=== PATIENT | male | born 1975 | race Hispanic/Latino ===

== ENCOUNTER 2019-12-28 09:41 | Inpatient (IN) | payer OTHER, SELFPAY ==
[2019-12-28] VITALS (11 sets, daily range): BP systolic 103–137; BP diastolic 67–90; PULSE 93–106; RESP 18–23; TEMP 36.9–37.5; O2SAT 90–95; BMI 33.3
--- NOTE | ~2019-12-28 | XR_ITS ---
EXAMINATION: XR chest 1V portable INDICATION: Shortness of breath and cough, COVID 19 positive TECHNIQUE: Portable AP chest at 1011 hours COMPARISON: None available FINDINGS: Diffuse, patchy bilateral airspace opacities are present. There is no pleural effusion or p neumothorax. The cardiomediastinal silhouette is normal. The visualized osseous structures are unrema rkable. IMPRESSION: 1. Diffuse lung disease, consistent with COVID 19 pneumonia. Reviewed, dictated and finalized at location A.
--- NOTE | 2019-12-28 09:55 | ECG_ITS ---
Measurements Intervals [place] Rate: 106 P: 27 [place]: 137 QRS: 0 QRSD: 93 T: 47 QT: 325 QTc: 433 Interpretive Statements SINUS TACHYCARDIA DELAYED PRECORDIAL R/S TRANSITION BASELINE ARTIFACT- III, AVF ABNORMAL ECG Electronically Signed On 12-28-2019 10:39:02 CDT by Arnold Degroot D.O.
[2019-12-28 10:31] LABS: Anion Gap 8 mmol/L (8-16); Blood Urea Nitrogen 12 mg/dL (9-20); Calcium 8.6 mg/dL (8.4-10.2); Carbon Dioxide 29 mmol/L (22-30); Chloride 97 mmol/L (98-107); Estimated CRCL calculation 136 ml/min; Estimated Glomerular Filt Rate > 60; Glucose 246 mg/dL (75-110); Potassium 4.1 mmol/L (3.4-5.0); Sodium 134 mmol/L (137-145)
[2019-12-28 10:32] LABS: Lactic Acid Reflex 1.6 mmol/L (0.7-2.1)
[2019-12-28 10:37] LABS: Basophils Percent Auto 0.3 % (0.2-1.2); Eosinophils Absolute Auto 0.1 K/mm3 (0-0.3); Eosinophils Percent Auto 1.2 % (0-4.4); Hematocrit 41.2 % (42.0-52.0); Hemoglobin 14.3 g/dL (14.0-18.0); Immature Granulocyte Absolute 0.05 K/mm3 (0.00-0.031); Immature Granulocyte Percent A 0.8 % (0-0.5); Lymphocytes Absolute Auto 1.28 K/mm3 (0.9-3.2); Lymphocytes Percent Auto 19.7 % (18.3-44.2); Mean Corpuscular HGB Conc 34.7 g/dl (32-36); Mean Corpuscular Hemoglobin 28.4 pg (26-34); Mean Corpuscular Volume 81.7 fl (80-100); Mean Platelet Volume 11.4 fl (7.4-10.4); Monocytes Absolute Auto 0.5 K/mm3 (0.1-0.6); Monocytes Percent Auto 7.1 % (2.6-8.5); Neutrophils Absolute Auto 4.6 K/mm3 (1.3-6.7); Neutrophils Percent Auto 70.9 % (45.5-73.1); Platelet Count Result 248 k/mm3 (150-375); Red Blood Count 5.04 M/mm3 (4.6-6.20); Red Cell Distribution Width 12.6 % (11.5-14.5); White Blood Count 6.5 K/mm3 (4.5-10.0)
[2019-12-28 10:41] LABS: Glucose Point of Care 209 (65-105)
--- NOTE | 2019-12-28 10:47 | ED.GENADULT ---
HPI - General Adult General Chief complaint: Shortness of Breath/Dyspnea <Sylvester Limon PA-C - Last Filed: 12/28/19 11:22> Stated complaint: SOB <Sylvester Limon PA-C - Last Filed: 12/28/19 11:22> Time Seen by Provider: 12/28/19 10:07 <Sylvester Limon PA-C - Last Filed: 12/28/19 11:22> Source: patient <Sylvester Limon PA-C - Last Filed: 12/28/19 11:22> Mode of arrival: ambulatory <Sylvester Limon PA-C - Last Filed: 12/28/19 11:22> Limitations: no limitations <Sylvester Limon PA-C - Last Filed: 12/28/19 11:22> History of Present Illness HPI narrative: Patient is a 44-year-old male who presents to emergency department for evaluation of upper respiratory symptoms 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 Patient on arrival denies vomiting diarrhea. Patient presents on oxygen due to hypoxemia <Sylvester Limon PA-C - Last Filed: 12/28/19 11:22> Related Data Allergies/adverse reactions: Allergies Allergy/AdvReac Type Severity Reaction Status Date / Time No Known Allergies Allergy Verified 12/28/19 10:00 <Sylvester Limon PA-C - Last Filed: 12/28/19 11:22> Review of Systems Review of Systems: All systems reviewed & are unremarkable except as noted in HPI and below <Sylvester Limon PA-C - Last Filed: 12/28/19 11:22> [facility] Past Medical History Medical History: Medical History (Updated 12/28/19 @ 11:22 by Sylvester Limon PA-C) Diabetes mellitus <Sylvester Limon PA-C - Last Filed: 12/28/19 11:22> Family History Family History: Family History Other Diabetes mellitus Family history of obesity Hypertension <LIZZY Valencia Last Filed: 12/28/19 11:22> Social History Social History: Social History Smoking status: Never smoker Alcohol intake: never <Sylvester Limon PA-C - Last Filed: 12/28/19 11:22> Exam Narrative: Exam Narrative: GENERAL: Ill-appearing, well-nourished, and in no acute distress. HEAD: Normocephalic, atraumatic. EYES: PERRLA and EOMI. ENT: Nares clear, no rhinorrhea or epistaxis. Mucous membranes moist. Oropharynx without tonsillar hypertrophy exudate or other lesions. NECK: Supple. No adenopathy or masses. CHEST: Diminished on auscultation. No respiratory distress. No wheezes. Crackles in the lung segura HEART: Regular rate and rhythm. No murmur heard. Normal peripheral pulses. EXTREMITIES: Normal range of motion. No edema. SKIN: Warm, dry, no rash. NEURO: No focal deficits. Alert and oriented x3. Cranial nerves II through XII grossly intact PSYCH: Normal mood and affect. <Sylvester Limon PA-C - Last Filed: 12/28/19 11:22> Course Course Emergency Course: Patient in the room at this time resting comfortably will be placed in hospital aware of case findings treatment plan and diagnosis seen by myself and my attending. <Sylvester Limon PA-C - Last Filed: 12/28/19 11:22> BURIAL AGENT/PA Physician Supervision Patient presented for evaluation of shortness of breath in the setting of recent diagnosed COVID infection. Patient is on day 8 of symptoms. At the time of assessment, patient is borderline hypoxemic, oxygen saturations are anywhere from 88 to 91% on room air. Patient is to neck. No severe respiratory distress. Patient was placed on nasal cannula oxygenation with improvement in his work of breathing. Laboratory results are consistent with viral infection. Chest x-ray is consistent with COVID-19 infection. Patient will be admitted to the hospitalist for hypoxemia in the setting of cold with infection. For this patient encounter
[2019-12-28 10:49] LABS: Phosphorus 3.3 mg/dL (2.5-4.5)
[2019-12-28 10:51] LABS: Alveolar/Arterial O2 Gradient 73.1 mmHg; Base Excess ABG 0.2 mEq/l (+/-2.0); Carboxyhemoglobin 0.6 % THb (0-2.0); Fractional Inspired Oxygen 24 %; HCO3 ABG 23.9 mEq/l (22.0-26.0); Methemoglobin ABG 0.1 %THb (0-1.5); Oxygen Content ABG 16.2 %vol (16.0-22.0); Oxygen Saturation ABG 90.1 % (95.0-100.0); Oxyhemoglobin 88.2 % THb (90.0-100.0); PCO2 ABG 35.9 mmHg (35.0-45.0); PO2 ABG 55.3 mmHg (80.0-100.0); Reduced Hemoglobin 11.1 %THb (0-5.0); Total Hemoglobin 13.1 g/dL (12.0-18.0); pH ABG 7.442 (7.350-7.450)
[2019-12-28 10:52] LABS: Device NASAL CANNULA; Site Drawn LEFT BRACHIAL
[2019-12-28 10:52] LABS: Alanine Aminotransferase 37 U/L (4-50); Albumin Level 3.6 g/dL (3.5-5.1); Alkaline Phosphatase 99 U/L (38-126); Aspartate Amino Transferase 45 U/L (17-59); Bilirubin,Total 0.6 mg/dL (0.2-1.3)
[2019-12-28 10:56] LABS: Beta-Hydroxybutyrate/Acetoacetate 0.23 mmol/L (0.02-0.27)
[2019-12-28 11:14] LABS: CRP 20.1 mg/dL (<1.0)
--- NOTE | 2019-12-28 12:18 | ADMGEN ---
This patient, Lencho Orr, was admitted to [facility] Surg Room 324-01. Patient/family oriented to hospital policies and general routines including ID bracelet, bed and alarms, visiting hours, pain management, procedures, bathroom and other care routines, personal items, smoking policy, room service/diet, and visiting hours. Valuables list has been completed. Information on how to activate the Rapid Response Team has been discussed. Patient/Family are encouraged to report perceived risks to care and to ask questions if they do not understand what they are told or what they should do.
--- NOTE | 2019-12-28 14:18 | PM.IMHP ---
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 He has had contact with covid 19 patient's. The patient stated that he started having symptoms this past Saturday with body aches fever and chills. He was tested on Saturday and found to be positive From a outside facility last Saturday. He has been taking Ultram at home for the body aches. He stated that his fevers have been over 101. He has been taking the Ultram for the body aches and Tylenol for fever. The patient came into the emergency room via ambulance because he was so short of breath with exertion. He thought that his oxygen level was down to the 70s in the ambulance ride. However when he was here he was in the upper 80% to 91% on room air. Oxygen was applied at 2 L per nasal cannula. Patient was afebrile here. He has been coughing. No nausea no vomiting no diarrhea no sore throat. Patient stated that he had high blood pressure and diabetes and had under control with diet. Has not been on any medications. He also stated that his and children are also sick. His blood sugar was noted to be 209 and 256 today. He was started on sliding scale insulin. he had been started on IV fluids but I have since stopped them. Date of service 12/28/2019 Review of Systems Review of Systems: All systems reviewed & are unremarkable except as noted in HPI and below Constitutional: Constitutional: Reports as per HPI and Reports no additional constitutional complaints Eyes: Eyes: Reports as per HPI and Reports no additional eye complaints ENT: Reports system reviewed and no additional complaints, except as documented and Reports Normal hearing present Cardiovascular: Cardiovascular: Reports no additional cardiovascular complaints Respiratory: Respiratory: Reports no additional respiratory complaints and Reports no additional respiratory complaints Gastrointestinal: Gastrointestinal: Reports as per HPI and Reports no additional gastrointestinal complaints Musculoskeletal: Musculoskeletal: Reports no additional musculoskeletal complaints Integumentary/Breasts: Skin/Breast: Reports system reviewed and no additional complaints, except as docu and Reports as per HPI Neurologic: Reports system reviewed and no additional complaints, except as documented, Reports as per HPI and Reports Normal hearing present Psychiatric: Psychiatric: Reports no additional psychiatric complaints and Reports as per HPI Endocrine: Endocrine: Reports no additional endocrine complaints Hematologic/Lymphatic: Hematologic/Lymphatic: Reports no additional hematologic/lymphatic complaints Allergic/Immunologic: Allergic/Immunologic: Reports no additional allergic/immunologic complaints [facility] Past Medical History Medical History (Updated 12/28/19 @ 14:46 by Maria Luisa Farley NP) Diabetes mellitus DM2 (diabetes mellitus, type 2) Hypertension Psoriasis Surgical History Surgical History (Updated 12/28/19 @ 14:25 by Maria Luisa Farley NP) History of back surgery S/P laminectomy Family History Family History (Updated 12/28/19 @ 14:25 by Maria Luisa Farley NP) Father Diabetes mellitus Other Family history of obesity Hypertension Social History Social History (Updated 12/28/19 @ 14:26 by Maria Luisa Farley NP) Social History: 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 He has 4 children and his is a durable power corporate attorney for healthcare. The patient desires to be a full code. The patient stated he quit smoking about 10 years ago. He smoked for short period of time occasionally uses alcohol but no marijuana or illicit drugs. Smoking status: Former smoker Second hand tobacco smoke exposure: No Alcohol intake: current Substance use: never Gender identity (if verbalized by the patient): Male
[2019-12-28 15:30] LABS: Estimated CRCL calculation 151 ml/min; Estimated Glomerular Filt Rate > 60
[2019-12-28] MEDS: REMDESIVIR 200 MG/NS 250 ML 200 MG/250 ML BAG 250 MG IVPB (15:34)
[2019-12-28] MEDS: FAMOTIDINE 20 MG/2 ML VIAL IV PUSH ×2 (15:35→21:03)
[2019-12-28] MEDS: DEXAMETHASONE SOD PHOS INJ 4 MG/ML VIAL 6 MG IV PUSH (15:35)
[2019-12-28] MEDS: TRIAMCINOLONE ACET 0.1% CREAM 15 GM TUBE 1 APPLIC TOPICAL (21:04)
[2019-12-28 22:08] LABS: Glucose Point of Care 197 (65-105)
[2019-12-29] VITALS (8 sets, daily range): BP systolic 123–164; BP diastolic 67–98; PULSE 90–99; RESP 18–20; TEMP 36.6–38.3; O2SAT 90–95
[2019-12-29 06:18] LABS: Glucose Point of Care 254 (65-105)
[2019-12-29 07:41] LABS: Alanine Aminotransferase 29 U/L (4-50)
[2019-12-29 08:06] LABS: Alanine Aminotransferase 28 U/L (4-50); Albumin Level 3.3 g/dL (3.5-5.1); Alkaline Phosphatase 85 U/L (38-126); Anion Gap 4 mmol/L (8-16); Aspartate Amino Transferase 32 U/L (17-59); Bilirubin,Total 0.4 mg/dL (0.2-1.3); Blood Urea Nitrogen 11 mg/dL (9-20); Calcium 8.6 mg/dL (8.4-10.2); Carbon Dioxide 28 mmol/L (22-30); Chloride 103 mmol/L (98-107); Estimated CRCL calculation 174 ml/min; Estimated Glomerular Filt Rate > 60; Glucose 199 mg/dL (75-110); Magnesium 2.1 mg/dL (1.6-2.3); Phosphorus 3.8 mg/dL (2.5-4.5); Potassium 4.2 mmol/L (3.4-5.0); Sodium 135 mmol/L (137-145)
[2019-12-29 08:18] LABS: Lactate Dehydrogenase 954 U/L (313-618)
[2019-12-29 08:39] LABS: CRP 18.2 mg/dL (<1.0)
[2019-12-29 09:10] LABS: Hemoglobin A1C 10.4 % (<5.7)
[2019-12-29 09:23] LABS: Glucose Point of Care 195 (65-105)
[2019-12-29] MEDS: ENOXAPARIN 40 MG/0.4 ML SYRINGE SUB-Q (09:30)
[2019-12-29 10:13] LABS: Free T4 Free Thyroxine Reflex 1.12 ng/dL (0.78-2.19)
[2019-12-29] MEDS: FAMOTIDINE 20 MG/2 ML VIAL IV PUSH ×2 (11:36→20:07)
[2019-12-29] MEDS: TRIAMCINOLONE ACET 0.1% CREAM 15 GM TUBE 1 APPLIC TOPICAL ×2 (11:36→20:07)
[2019-12-29] MEDS: DEXAMETHASONE SOD PHOS INJ 4 MG/ML VIAL 6 MG IV PUSH (11:36)
[2019-12-29] MEDS: INSULIN ASPART (*BKC) 100 UNITS/ML SUB-Q ×2 (11:48→17:01)
[2019-12-29 12:14] LABS: Glucose Point of Care 272 (65-105)
[2019-12-29 13:04] LABS: Total Triiodothyronine (T3) 0.71 NG/ML (0.97-1.69)
--- NOTE | 2019-12-29 13:54 | PM.IMPN ---
Progress Note: A&P Assessment and Plan (1) COVID-19: Code(s): U07.1 - COVID-19 Status: Acute Assessment and Plan: Symptoms began approximately 8 days ago. At presentation, he was noted to be hypoxic at 88-91% on room air. CXR showed diffuse lung disease consistent with COVID-19 pneumonia. T-max 101.0 at this facility , self-reported T-max at home was 103.0. isolation precautions continue dexamethasone and a severe given oxygen requirements supportive care as needed was supplemental oxygen p.r.n., acetaminophen as needed for fever, mucolytic therapy, and bronchodilators. trend acute phase reactants (2) Psoriasis: Code(s): L40.9 - Psoriasis, unspecified Status: Chronic Assessment and Plan: continue triamcinolone. (3) Hypertension: Qualifiers: Hypertension type: essential hypertension Qualified Code(s): I10 - Essential (primary) hypertension Code(s): I10 - Essential (primary) hypertension Status: Acute Assessment and Plan: Patient discontinued antihypertensives after losing approximately 100 lbs about 1 year ago. Blood pressures reviewed today and are stable. prn IV hydralazine available as needed (4) DM2 (diabetes mellitus, type 2): Qualifiers: Diabetes mellitus supervisor intermediates insulin use: without supervisor intermediates use Diabetes mellitus complication status: without complication Qualified Code(s): E11.9 - Type 2 diabetes mellitus without complications Code(s): E11.9 - Type 2 diabetes mellitus without complications Status: Acute Assessment and Plan: Previously insulin-dependent, on metformin, and glipizide. He stop taking these medications after losing weight and reports he is now diet controlled. A1c today is 10.4. Monitor blood sugars with Accu-Cheks ACHS, high dose SSI, and hypoglycemic protocol Patient will likely require addition of an oral hypoglycemic as his A1c is elevated. Subjective Date/time seen: 12/29/19 13:54 Interval history: Date of service: 12/29/2019 Mr. Orr is a 44-year-old male with a history of type 2 diabetes mellitus and hypertension who is seen in follow-up for COVID-19 pneumonia. He has been having symptoms for approximately 8 days. Patient reports he is beginning to feel a little bit better today. He still feels extremely fatigued and worn down. He complains of generalized body aches. He had been experiencing some subjective fevers and chills, but he believes this is getting better. He endorses productive cough with clear to white sputum. He has pleuritic chest pain which occurs with cough and with deep inspiration. He endorses CHISHOLM when ambulating to the restroom. He denies orthopnea. He denies abdominal pain, nausea, or vomiting. His sense of taste and smell are intact. He denies headache , dizziness, lightheadedness or palpitations. His appetite has been good. He denies any urinary symptoms. He has not had a bowel movement in several days. Review of Systems Review of Systems: Narrative: A 12 point review of systems was reviewed with pertinent positives and negatives as per HPI. Exam Narrative: Exam Narrative: Mr. Orr Is a well-nourished 44-year-old male who is lying in bed in the LLD position. He appears comfortable and is in no acute respiratory distress. HR 94, BP 125/81, RR 20, T 98.2?, 95% on 3 L Neuro: awake, alert and oriented x4, speech clear, no focal neuro deficits noted HEENMT: normocephalic, atraumatic, EOMI, sclerae anicteric, moist oral mucosa, tongue midline Neck: supple, no lymphadenopathy Respiratory: clear to auscultation bilaterally, nonlabored breathing Cardio: regular rate, regular rhythm with S1-S2 Abdomen: nondistended, normoactive bowel sounds, soft, nontender to palpation Extremities: no edema, erythema, cyanosis, clubbing, or tenderness to palpation, DP pulses 2+ bilaterally Skin: no rashes or lesions, warm and dry Psych: appropr
[2019-12-29] MEDS: ACETAMINOPHEN 325 MG TABLET PO (14:02)
[2019-12-29] MEDS: REMDESIVIR 100 MG/NS 250 ML 100 MG/250 ML BAG 250 MG IVPB (14:43)
[2019-12-29] MEDS: guaiFENesin 12 HR 600 MG TABCR PO ×2 (16:55→20:07)
[2019-12-29 17:15] LABS: Glucose Point of Care 381 (65-105)
[2019-12-29 22:17] LABS: Glucose Point of Care 485 (65-105)
[2019-12-29] MEDS: INSULIN ASPART (*BKC) 100 UNITS/ML 10 UNITS SUB-Q (22:28)
[2019-12-29] MEDS: hydrALAZINE HCL 20 MG/ML VIAL 10 MG IV PUSH (23:23)
[2019-12-30] VITALS: BP 138/84; PULSE 87; RESP 20; TEMP 36.8; O2SAT 93
[2019-12-30 04:00] VITALS: BP 142/90; PULSE 86; RESP 20; TEMP 36.7; O2SAT 93
[2019-12-30 05:15] LABS: Glucose Point of Care 284 (65-105)
[2019-12-30 06:46] LABS: Hematocrit 36.1 % (42.0-52.0); Hemoglobin 12.9 g/dL (14.0-18.0); Mean Corpuscular HGB Conc 35.7 g/dl (32-36); Mean Corpuscular Hemoglobin 28.8 pg (26-34); Mean Corpuscular Volume 80.6 fl (80-100); Platelet Count Result 301 k/mm3 (150-375); Red Blood Count 4.48 M/mm3 (4.6-6.20); Red Cell Distribution Width 12.3 % (11.5-14.5); White Blood Count 5.7 K/mm3 (4.5-10.0)
[2019-12-30 07:33] LABS: Alanine Aminotransferase 31 U/L (4-50); Albumin Level 2.9 g/dL (3.5-5.1); Alkaline Phosphatase 94 U/L (38-126); Anion Gap 8 mmol/L (8-16); Aspartate Amino Transferase 28 U/L (17-59); Bilirubin,Total 0.4 mg/dL (0.2-1.3); Blood Urea Nitrogen 12 mg/dL (9-20); Calcium 8.4 mg/dL (8.4-10.2); Carbon Dioxide 26 mmol/L (22-30); Chloride 102 mmol/L (98-107); Estimated CRCL calculation 205 ml/min; Estimated Glomerular Filt Rate > 60; Glucose 275 mg/dL (75-110); Lactate Dehydrogenase 868 U/L (313-618); Potassium 4.5 mmol/L (3.4-5.0); Sodium 136 mmol/L (137-145)
[2019-12-30 07:48] LABS: CRP 14.5 mg/dL (<1.0)
[2019-12-30 08:00] VITALS: BP 143/89; PULSE 89; RESP 16; TEMP 36.8; O2SAT 93
[2019-12-30] MEDS: INSULIN ASPART (*BKC) 100 UNITS/ML SUB-Q ×3 (09:21→17:22)
[2019-12-30] MEDS: DEXAMETHASONE SOD PHOS INJ 4 MG/ML VIAL 6 MG IV PUSH (09:25)
[2019-12-30] MEDS: ENOXAPARIN 40 MG/0.4 ML SYRINGE SUB-Q (09:26)
[2019-12-30] MEDS: TRIAMCINOLONE ACET 0.1% CREAM 15 GM TUBE 1 APPLIC TOPICAL (09:27)
[2019-12-30] MEDS: guaiFENesin 12 HR 600 MG TABCR PO (09:27)
[2019-12-30 11:06] LABS: Glucose Point of Care 256 (65-105)
[2019-12-30] MEDS: FAMOTIDINE 20 MG/2 ML VIAL IV PUSH (11:55)
[2019-12-30 12:00] VITALS: BP 143/83; PULSE 84; RESP 16; TEMP 36.8; O2SAT 94
[2019-12-30 12:05] LABS: Glucose Point of Care 330 (65-105)
[2019-12-30] MEDS: REMDESIVIR 100 MG/NS 250 ML 100 MG/250 ML BAG 250 MG IVPB (15:57)
[2019-12-30 16:00] VITALS: BP 149/90; PULSE 90; RESP 16; TEMP 36.8; O2SAT 93
[2019-12-30] MEDS: INSULIN GLARGINE (*BKC) 100 UNITS/ML 10 UNITS SUB-Q (17:23)
--- NOTE | 2019-12-31 07:15 | PM.DS ---
DS: Admitting Diagnosis Admitting Diagnosis Admitting Diagnosis: pneumonia/hypoxemia/Covid 19 DS: Discharge Diagnosis Discharge Diagnosis (1) COVID-19: Code(s): U07.1 - COVID-19 Status: Acute Assessment and Plan: Symptoms began approximately 8 days prior to presentation. He tested positive for COVID at an outside facility several days prior to arrival. 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 At presentation, he was noted to be hypoxic at 88-91% on room air. CXR showed diffuse lung disease consistent with COVID-19 pneumonia. T-max 101.0 at this facility. He was started on remdesivir and dexamethasone given his oxygen requirements, which were discontinued at discharge. He required up to 3L O2 per NC but was weaned to room air. He had impressive symptomatic relief with mucolytic therapy and he will continue guaifenesin at discharge. Acute phase reactants were monitored and improved. Preliminary BCx showed NGTD and final cultures will be monitored. (2) DM2 (diabetes mellitus, type 2): Qualifiers: Diabetes mellitus rn long term care insulin use: without rn long term care use Diabetes mellitus complication status: without complication Qualified Code(s): E11.9 - Type 2 diabetes mellitus without complications Code(s): E11.9 - Type 2 diabetes mellitus without complications Status: Acute Assessment and Plan: Previously insulin-dependent, on metformin, and glipizide. He stopped taking these medications after losing weight about 1 year ago and reports he is now diet controlled. Updated A1c (12/29/19) was 10.4. He was covered with SSI during his stay. Given his elevated A1c, he was agreeable to being started on metformin. This will likely require further uptitration and additional agent may be required. He was instructed to monitor his blood sugars TID at home and record for review by PCP. Blood sugars were elevated during his stay which I suspect was exacerbated by dexamethasone. (3) Hypertension: Qualifiers: Hypertension type: essential hypertension Qualified Code(s): I10 - Essential (primary) hypertension Code(s): I10 - Essential (primary) hypertension Status: Acute Assessment and Plan: Patient discontinued antihypertensives after losing approximately 100 lbs about 1 year ago. Blood pressures were reviewed and were mildly elevated. He will likely require antihypertensive agent, but he did not wish to initiate any medication at this time. He will need to follow up with PCP in 1-2 weeks. (4) Psoriasis: Code(s): L40.9 - Psoriasis, unspecified Status: Chronic Assessment and Plan: Topical triamcinolone was applied. He should follow up with a commercial real estate agent. DS: Summary Hospital Course Reason for hospitalization: Shortness of breath Hospital Course: Date of admission: 12/28/2019 Date of discharge: 12/30/2019 Lencho Orr is a 44-year-old male with history of type 2 diabetes mellitus which he reports is now diet controlled and hypertension who presented to the emergency department on 12/28/2019 with complaints shortness of breath, productive cough, and fatigue that had been ongoing for approximately 8 days. 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 He tested positive for COVID at outside facility several days to arrival. at presentation 70 hypoxic with saturations between 88% on room air, He was very mildly tachycardic, afebrile, WBC 6.5, glucose 246 lactic 1.6 CRP 20.1, and CXR showing diffuse disease consistent COVID-19 pneumonia. He was admitted to the hospitalist service for further evaluation management. Please see above for further details. He was weaned to room air. His shortness of breath and cough improved significantly. He began feeling much better and requested discharge. He felt comfortable with returning home. Given his stable respiratory status, he was felt to no longer require
[2020-01-01 11:30] LABS: Glucose Point of Care 467 (65-105)
== END 2019-12-30 17:30 | disposition home or self-care (01) | DRG 177 ==
LOC: ANHED 11:22 → ANH3MEDSUR 11:33
PROVIDERS: Emergency Medicine Emergency Medical Services; Nurse Practitioner; Admitting Provider Internal Medicine; Emergency Provider Emergency Medicine; PCP Family Medicine; Visit Provider Physician Assistant
DX: U07.1 COVID-19 (principal); J12.89 Other viral pneumonia; R09.02 Hypoxemia; E11.9 Type 2 diabetes mellitus without complications; I10 Essential (primary) hypertension; L40.9 Psoriasis, unspecified; Z87.891 Personal history of nicotine dependence
CPT/HCPCS: 36415; 36600; 71045; 80048; 80053; 80076; 82010; 82375; 82565; 82728; 82805; 82948; 83036; 83050; 83605; 83615; 83735; 84100; 84439; 84443; 84460; 84480; 85025; 85027; 86140; 87040; 93005; 99285; A9270; G0378; J0360; J1100; J1650; J1815

== ENCOUNTER 2020-01-08 10:26 | Emergency (ER) | payer OTHER, SELFPAY | END 2020-01-08 10:35 | disposition left against medical advice (07) | PROVIDERS: Emergency Provider Internal Medicine Hematology & Oncology | DX: Z53.21 Procedure and treatment not carried out due to patient leaving prior to being seen by health care provider (principal) | CPT/HCPCS: 99199 ==

== ENCOUNTER 2020-01-08 10:49 | Emergency (ER) | payer OTHER, SELFPAY ==
[2020-01-08] VITALS (12 sets, daily range): BP systolic 131–163; BP diastolic 97–111; PULSE 89–100; RESP 11–19; TEMP 35.9; O2SAT 93–99
--- NOTE | ~2020-01-08 | XR_ITS ---
EXAMINATION: XR chest 1V portable INDICATION: Shortness of breath, COVID 19 TECHNIQUE: Portable AP chest at 1134 hours COMPARISON: 12/28/2019 FINDINGS: Patchy bilateral airspace opacities persist with slight improvement on the left. There is n o pleural effusion or pneumothorax. The cardiomediastinal silhouette is normal. IMPRESSION: 1. Diffuse lung disease, with slight interval improvement on the left, in a pattern consistent with C OVID 19 pneumonia. Reviewed, dictated and finalized at location B. IMPRESSION: 1. Diffuse lung disease, with slight interval improvement on the left, in a pat tern consistent with COVID 19 pneumonia.
[2020-01-08 11:20] LABS: Basophils Percent Auto 0.4 % (0.2-1.2); Eosinophils Absolute Auto 0.1 K/mm3 (0-0.3); Eosinophils Percent Auto 1.5 % (0-4.4); Hematocrit 38.2 % (42.0-52.0); Hemoglobin 13.5 g/dL (14.0-18.0); Immature Granulocyte Absolute 0.02 K/mm3 (0.00-0.031); Immature Granulocyte Percent A 0.3 % (0-0.5); Lymphocytes Absolute Auto 2.37 K/mm3 (0.9-3.2); Lymphocytes Percent Auto 32.8 % (18.3-44.2); Mean Corpuscular HGB Conc 35.3 g/dl (32-36); Mean Corpuscular Hemoglobin 28.9 pg (26-34); Mean Corpuscular Volume 81.8 fl (80-100); Mean Platelet Volume 10.7 fl (7.4-10.4); Monocytes Absolute Auto 0.5 K/mm3 (0.1-0.6); Monocytes Percent Auto 6.9 % (2.6-8.5); Neutrophils Absolute Auto 4.2 K/mm3 (1.3-6.7); Neutrophils Percent Auto 58.1 % (45.5-73.1); Platelet Count Result 272 k/mm3 (150-375); Red Blood Count 4.67 M/mm3 (4.6-6.20); Red Cell Distribution Width 12.9 % (11.5-14.5); White Blood Count 7.2 K/mm3 (4.5-10.0)
[2020-01-08 11:32] LABS: Anion Gap 7 mmol/L (8-16); Blood Urea Nitrogen 17 mg/dL (9-20); Calcium 9.4 mg/dL (8.4-10.2); Carbon Dioxide 27 mmol/L (22-30); Chloride 102 mmol/L (98-107); Estimated CRCL calculation 151 ml/min; Estimated Glomerular Filt Rate > 60; Glucose 270 mg/dL (75-110); Potassium 4.5 mmol/L (3.4-5.0); Sodium 136 mmol/L (137-145)
[2020-01-08 12:50] LABS: Alveolar/Arterial O2 Gradient 19.7 mmHg; Base Excess ABG -0.1 mEq/l (+/-2.0); Fractional Inspired Oxygen 21 %; HCO3 ABG 23.4 mEq/l (22.0-26.0); Oxygen Content ABG 18.1 %vol (16.0-22.0); Oxygen Saturation ABG 97.1 % (95.0-100.0); Oxyhemoglobin 95.6 % THb (90.0-100.0); PCO2 ABG 34.8 mmHg (35.0-45.0); PO2 ABG 88.4 mmHg (80.0-100.0); PO2 FiO2 Ratio Arterial Blood 4.21 %; Total Hemoglobin 13.4 g/dL (12.0-18.0); pH ABG 7.446 (7.350-7.450)
[2020-01-08 12:51] LABS: Device ROOM AIR; Modified Allen's Test Pass; Site Drawn LEFT RADIAL
--- NOTE | 2020-01-08 13:24 | ED.GENADULT ---
HPI - General Adult General Chief complaint: Unspecified Stated complaint: can't get my energy up Time Seen by Provider: 01/08/20 12:15 Source: patient History of Present Illness HPI narrative: 44 years old male he had a diagnosis of COVID-19 weeks ago, patient was asked to go back to work and still feeling weak and shortness of breath with activity. Patient denies any fever, chills, nausea or vomiting. Not feeling weak with slight activities. Related Data Allergies Allergy/AdvReac Type Severity Reaction Status Date / Time No Known Allergies Allergy Verified 01/08/20 12:13 Review of Systems Review of Systems: Narrative: CONSTITUTIONAL: Denies fever, chills, or sweats. EYES: Denies visual changes, redness, or discharge. ENT: Denies rhinorrhea, congestion, sore throat, or otalgia. CARDIOVASCULAR: Denies chest pain, palpitations, or edema. RESPIRATORY: Denies cough or dyspnea. GASTROINTESTINAL: Denies abdominal pain, nausea, vomiting, or diarrhea. GENITOURINARY: Denies dysuria or hematuria. SKIN: Denies rash or itching. MUSCULOSKELETAL: Denies back pain, joint pain, or myalgia. NEUROLOGIC: Denies headache, numbness, or weakness. PSYCHIATRIC: Denies anxiety or depression. 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 The patient desires to be a full code. The patient stated he quit smoking about 10 years ago. He smoked for short period of time occasionally uses alcohol but no marijuana or illicit drugs. Smoking status: Former smoker Second hand tobacco smoke exposure: No Alcohol intake: current Substance use: never Gender identity (if verbalized by the patient): Male Sexual Orientation (if Verbalized by the Patient): Straight or Heterosexual Spiritual care concerns: No Exam Narrative: Exam Narrative: General appearance: Well-developed, well-nourished Skin: Normal color Head: Normocephalic, nontraumatic Eyes: Clear conjunctiva ENT: Oropharynx normal, ears normal, nose normal Neck: Supple, nontender Chest and respiratory: Airway patent, no respiratory distress, no accessory muscle use Heart: Regular rate/rhythm Abdomen: Soft, nontender, no organomegaly, quiet bowel sounds Vascular: Normal peripheral pulses, normal capillary refill. Musculoskeletal: Normal range of motion, nontender back Neurologic: Alert and oriented ?3, [employer] is normal as tested, no gross motor deficit Course Course Emergency Course: Stable Vital Signs Vital signs: Vital Signs Temperature 35.9 C L 01/08/20 11:04 Pulse Rate 100 01/08/20 11:04 Respiratory Rate 16 01/08/20 11:04 Blood Pressure 131/98 H 01/08/20 11:04 Pulse Oximetry 98 01/08/20 11:04 Temperature 35.9 C L 01/08/20 11:04 Pulse Rate 94 01/08/20 12:12 Respiratory Rate 17 01/08/20 12:12 Blood Pressure 160/111 H 01/08/20 12:12 Pulse Oximetry 95 01/08/20 12:12 Medical Decision Making MDM Narrative Medical decision making narrative: COVID-19 infection syndrome is my concern. I can make the decision for patient
== END 2020-01-08 14:07 | disposition home or self-care (01) ==
PROVIDERS: Emergency Medicine; Emergency Provider Emergency Medicine
DX: U07.1 COVID-19 (principal); Z87.891 Personal history of nicotine dependence; E11.9 Type 2 diabetes mellitus without complications; I10 Essential (primary) hypertension
CPT/HCPCS: 36415; 36600; 71045; 80048; 82805; 85025; 99283

== ENCOUNTER 2022-08-29 07:41 | Outpatient (CLI) | payer OTHER, SELFPAY ==
[2022-08-29 08:36] LABS: Basophils Percent Auto 0.3 % (0.2-1.2); Eosinophils Absolute Auto 0.1 K/mm3 (0-0.3); Eosinophils Percent Auto 1.2 % (0-4.4); Hematocrit 38.4 % (42.0-52.0); Hemoglobin 13.7 g/dL (14.0-18.0); Immature Granulocyte Absolute 0.06 K/mm3 (0.00-0.031); Immature Granulocyte Percent A 0.6 % (0-0.5); Lymphocytes Absolute Auto 2.24 K/mm3 (0.9-3.2); Lymphocytes Percent Auto 22.7 % (18.3-44.2); Mean Corpuscular HGB Conc 35.7 g/dl (32-36); Mean Corpuscular Hemoglobin 29.6 pg (26-34); Mean Corpuscular Volume 82.9 fl (80-100); Mean Platelet Volume 11.3 fl (7.4-10.4); Monocytes Absolute Auto 0.6 K/mm3 (0.1-0.6); Monocytes Percent Auto 6.1 % (2.6-8.5); Neutrophils Absolute Auto 6.8 K/mm3 (1.3-6.7); Neutrophils Percent Auto 69.1 % (45.5-73.1); Platelet Count Result 235 k/mm3 (150-375); Red Blood Count 4.63 M/mm3 (4.6-6.20); Red Cell Distribution Width 12.9 % (11.5-14.5); White Blood Count 9.9 K/mm3 (4.5-10.0)
[2022-08-29 09:13] LABS: LDL Cholesterol Direct 69 mg/dL
[2022-08-29 09:31] LABS: Alanine Aminotransferase 32 U/L (6-50); Albumin Level 3.7 g/dL (3.5-5.1); Alkaline Phosphatase 168 U/L (38-126); Anion Gap 5 mmol/L (8-16); Aspartate Amino Transferase 21 U/L (17-59); Bilirubin,Total 0.6 mg/dL (0.2-1.3); Blood Urea Nitrogen 18 mg/dL (9-20); Calcium 8.8 mg/dL (8.4-10.2); Carbon Dioxide 28 mmol/L (22-30); Chloride 100 mmol/L (98-107); Cholesterol 232 mg/dL (0-200); Estimated Glomerular Filt Rate > 60; Glucose 415 mg/dL (65-110); Sodium 133 mmol/L (137-145)
[2022-08-29 09:34] LABS: Prostate Specific Antigen 0.2 ng/mL (< OR = 4.0)
[2022-08-29 09:46] LABS: Hemoglobin A1C 12.5 % (<5.7)
[2022-08-29 10:32] LABS: Triglycerides 739 mg/dL (<150)
[2022-09-04 18:15] LABS: Testosterone Free 46.6 pg/mL (35.0-155.0); Testosterone Total 146 ng/dL (250-1100)
== END 2022-08-29 07:42 | disposition home or self-care (01) ==
LOC: ANHLAB 07:42
PROVIDERS: PCP Family Medicine; Visit Provider Nurse Practitioner
DX: Z76.89 Persons encountering health services in other specified circumstances (principal); E11.9 Type 2 diabetes mellitus without complications; Z12.5 Encounter for screening for malignant neoplasm of prostate; E29.1 Testicular hypofunction
CPT/HCPCS: 36415; 80053; 80061; 83036; 84153; 84402; 84403; 84443; 85025; G0103

== ENCOUNTER 2022-09-02 09:56 | Emergency (ER) | payer OTHER, SELFPAY ==
[2022-09-02 10:03] VITALS: BP 186/121; PULSE 117; RESP 20; TEMP 36.4; O2SAT 99
[2022-09-02] MEDS: LIDOCAINE/PRILOCAINE CREAM 2.5-2.5% TUBE 1 EACH TOPICAL (10:18)
[2022-09-02] MEDS: KETOROLAC 30 MG/ML VIAL (*BKC) IM (10:18)
[2022-09-02] MEDS: AMOXICILLIN/CLAVULANATE K 875-125 MG TAB 1 TABLET PO (10:18)
--- NOTE | 2022-09-02 10:29 | ED.DENTAL ---
HPI - Dental/Oral General Chief complaint: Dental/Oral Stated complaint: facial swelling Time Seen by Provider: 09/02/22 10:03 History of Present Illness HPI Narrative: Patient is a 46-year-old male here for evaluation of dental pain and abscess on his buttock. Patient states he started having pain, swelling and redness to his left buttock about 3 weeks ago. He has been using warm compresses and sitz bath's and the area has been draining slightly but he still notes pain and redness. History of similar in other areas. No fevers, chills, nausea, vomiting, diarrhea or constipation. Additionally, patient states his left upper molar started hurting 4 days ago. He contacted a dentist but he did not want to pay the co-pay. He developed some swelling around his left cheek this morning which prompted his ED evaluation. He has had no pain in his eyes. He is requesting to have his tooth removed in the emergency department. Related Data Allergies Allergy/AdvReac Type Severity Reaction Status Date / Time No Known Allergies Allergy Verified 09/02/22 10:10 Review of Systems Review of Systems: Gen.: Denies fevers or chills Eyes: Denies eye pain or visual change ENT: Reports dental pain Respiratory: Denies shortness of breath or cough CV: Denies chest pain or palpitations GI: Denies abdominal pain nausea, emesis or diarrhea denies burning, urgency, frequency or hematuria Musculoskeletal: Denies back pain or muscle pain Neuro: Denies numbness, tingling, weakness or focal weakness Skin: Reports abscess to buttock Except as documented, all other systems reviewed and negative [facility] Past Medical History Medical History Diabetes mellitus DM2 (diabetes mellitus, type 2) Hypertension Psoriasis Surgical History Surgical History History of back surgery S/P laminectomy Family History Family History Father Diabetes mellitus Other Family history of obesity Hypertension Social History Social History Social History: 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 He has 4 children and his is a durable power litigation attorney for healthcare. The patient desires to be a full code. The patient stated he quit smoking about 10 years ago. He smoked for short period of time occasionally uses alcohol but no marijuana or illicit drugs. 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 Head: Normocephalic and atraumatic. EYES: PERRLA/EOMI, conjunctivae clear NOSE: No nasal drainage EARS: External ear normal in appearance THROAT: poor dentition throughout. there is no visible abscess in the oral cavity. there is tenderness to palpation along the left upper molar. NECK: Supple. No adenopathy, no masses. RESPIRATORY: Airway patent, respirations nonlabored. Clear to auscultation bilaterally, no rales, rhonchi, wheezing. CARDIOVASCULAR: Regular rate and rhythm without
[2022-09-02] MEDS: ONDANSETRON HCL ODT 4 MG TABLET PO (11:19)
== END 2022-09-02 11:49 | disposition home or self-care (01) ==
PROVIDERS: Emergency Provider Physician Assistant; PCP Family Medicine
DX: L02.31 Cutaneous abscess of buttock (principal); K08.89 Other specified disorders of teeth and supporting structures; E11.9 Type 2 diabetes mellitus without complications; I10 Essential (primary) hypertension; Z87.891 Personal history of nicotine dependence; Z79.84 Long term (current) use of oral hypoglycemic drugs
CPT/HCPCS: 87070; 87147; 87181; 87186; 87205; 96372; 99283; A9270; J1885

== ENCOUNTER 2023-12-17 07:49 | Outpatient (CLI) | payer OTHER, BC, SELFPAY ==
[2023-12-17 18:41] LABS: Basophils Percent Auto 0.6 % (0.2-1.2); Eosinophils Absolute Auto 0.1 K/mm3 (0-0.3); Eosinophils Percent Auto 1.7 % (0-4.4); Hematocrit 41.7 % (42.0-52.0); Immature Granulocyte Absolute 0.05 K/mm3 (0.00-0.031); Immature Granulocyte Percent A 0.7 % (0-0.5); Lymphocytes Absolute Auto 2.04 K/mm3 (0.9-3.2); Lymphocytes Percent Auto 28.3 % (18.3-44.2); Mean Corpuscular HGB Conc 33.6 g/dl (32-36); Mean Corpuscular Hemoglobin 29.2 pg (26-34); Mean Corpuscular Volume 86.9 fl (80-100); Mean Platelet Volume 11.8 fl (7.4-10.4); Monocytes Absolute Auto 0.5 K/mm3 (0.1-0.6); Monocytes Percent Auto 6.8 % (2.6-8.5); Neutrophils Absolute Auto 4.5 K/mm3 (1.3-6.7); Neutrophils Percent Auto 61.9 % (45.5-73.1); Platelet Count Result 162 k/mm3 (150-375); Red Cell Distribution Width 14.7 % (11.5-14.5); White Blood Count 7.2 K/mm3 (4.5-10.0)
[2023-12-17 19:00] LABS: NT Pro B Type Natriuretic Pept 427 pg/mL (19.9-100)
[2023-12-17 19:22] LABS: Prostate Specific Antigen 0.3 ng/mL (< OR = 4.0)
[2023-12-17 19:26] LABS: Creatinine Urine 37.2 mg/dL
[2023-12-17 19:32] LABS: Alanine Aminotransferase 20 U/L (6-50); Albumin Level 3.4 g/dL (3.5-5.1); Alkaline Phosphatase 164 U/L (38-126); Anion Gap 8 mmol/L (4-12); Aspartate Amino Transferase 31 U/L (17-59); Bilirubin,Total 0.4 mg/dL (0.2-1.3); Blood Urea Nitrogen 22 mg/dL (9-20); Calcium 8.8 mg/dL (8.4-10.2); Carbon Dioxide 28 mmol/L (22-30); Chloride 97 mmol/L (98-107); Cholesterol 289 mg/dL (0-200); Estimated Glomerular Filt Rate > 60; Glucose 401 mg/dL (65-110); LDL Cholesterol Direct < 60 mg/dL; Potassium 4.1 mmol/L (3.4-5.0); Sodium 133 mmol/L (137-145)
[2023-12-17 19:34] LABS: Triglycerides 1873 mg/dL (<150)
[2023-12-17 19:41] LABS: Hemoglobin A1C 12.2 % (<5.7)
[2023-12-17 20:41] LABS: MALB Creatinine Ratio > 3064.5 mg/g (0-30); Microalbumin Urine Random > 1140.0 mg/L (0-16.7)
[2023-12-22 16:12] LABS: Testosterone Free 38.7 pg/mL (35.0-155.0); Testosterone Total 169 ng/dL (250-1100)
== END 2023-12-17 07:50 | disposition home or self-care (01) ==
LOC: ANHBWCLAB 07:55
PROVIDERS: PCP Nurse Practitioner Adult Health; Visit Provider Nurse Practitioner Adult Health
DX: E11.9 Type 2 diabetes mellitus without complications (principal); E03.9 Hypothyroidism, unspecified; L02.31 Cutaneous abscess of buttock; E29.1 Testicular hypofunction; R60.9 Edema, unspecified
CPT/HCPCS: 36415; 80053; 80061; 82043; 82565; 83036; 83880; 84153; 84402; 84403; 84443; 85025

== ENCOUNTER 2023-12-19 20:12 | Emergency (ER) | payer BC, SELFPAY ==
--- NOTE | ~2023-12-19 | XR_ITS ---
EXAMINATION: XR chest 1V portable Exam Date/Time: 12/19/2023 22:15 CDT HISTORY: Cough Comparison: 01/08/2020. RESULT: Lines, tubes, and devices: None. Lungs and pleura: Clear. Cardiomediastinal silhouette: Stable. Other: No acute osseous or upper abdominal finding. IMPRESSION: No acute cardiopulmonary process. Reviewed, dictated and finalized at location K.
[2023-12-19 20:18] VITALS: BP 203/107; PULSE 103; RESP 18; TEMP 36.4; O2SAT 97
[2023-12-19 21:40] VITALS: BP 204/119; PULSE 96; RESP 20; O2SAT 97
--- NOTE | 2023-12-19 21:47 | ECG_ITS ---
Test Date: 2023-12-19 22:14:31 Measurements Intervals [place] Rate: 94 P: 24 NM: 147 QRS: -11 QRSD: 105 T: 65 QT: 346 QTc: 434 Interpretive Statements SINUS RHYTHM ANTEROSEPTAL MYOCARDIAL INFARCTION , OF INDETERMINATE AGE [40+ ms Q WAVE IN V1-V4] PREVIOUS INFERIOR INFARCTION ABNORMAL ECG No previous ECG available for comparison Electronically Signed On 12-20-2023 12:48:36 CDT by Raphael Emanuel M.D.
[2023-12-19 22:07] LABS: Alveolar/Arterial O2 Gradient 30.8 mmHg; Base Excess ABG -0.1 mEq/l (+/-2.0); Fractional Inspired Oxygen 21 %; HCO3 ABG 23.5 mEq/l (22.0-26.0); Oxygen Content ABG 17.4 %vol (16.0-22.0); Oxygen Saturation ABG 95.9 % (95.0-100.0); Oxyhemoglobin 94.9 % THb (90.0-100.0); PCO2 ABG 35.2 mmHg (35.0-45.0); PO2 ABG 76.8 mmHg (80.0-100.0); PO2 FiO2 Ratio Arterial Blood 3.66 %; pH ABG 7.443 (7.350-7.450)
[2023-12-19 22:08] LABS: Device ROOM AIR; Modified Allen's Test Pass; Site Drawn LEFT RADIAL
[2023-12-19 22:17] LABS: Basophils Percent Auto 0.5 % (0.2-1.2); Eosinophils Absolute Auto 0.1 K/mm3 (0-0.3); Eosinophils Percent Auto 1.8 % (0-4.4); Hematocrit 36.5 % (42.0-52.0); Hemoglobin 13.7 g/dL (14.0-18.0); Immature Granulocyte Absolute 0.06 K/mm3 (0.00-0.031); Lymphocytes Absolute Auto 2.31 K/mm3 (0.9-3.2); Lymphocytes Percent Auto 37.1 % (18.3-44.2); Mean Corpuscular HGB Conc 37.5 g/dl (32-36); Mean Corpuscular Hemoglobin 30.4 pg (26-34); Mean Corpuscular Volume 81.1 fl (80-100); Mean Platelet Volume 11.3 fl (7.4-10.4); Monocytes Absolute Auto 0.5 K/mm3 (0.1-0.6); Monocytes Percent Auto 7.7 % (2.6-8.5); Neutrophils Absolute Auto 3.2 K/mm3 (1.3-6.7); Neutrophils Percent Auto 51.9 % (45.5-73.1); Platelet Count Result 153 k/mm3 (150-375); Red Cell Distribution Width 13.9 % (11.5-14.5); White Blood Count 6.2 K/mm3 (4.5-10.0)
[2023-12-19] MEDS: SODIUM CHLORIDE 0.9% IV 1,000 ML 999 ML IV CONT (22:20)
[2023-12-19 22:27] LABS: Lactic Acid Reflex 1.4 mmol/L (0.7-2.0)
[2023-12-19 22:28] LABS: Alanine Aminotransferase 22 U/L (6-50); Albumin Level 3.5 g/dL (3.5-5.1); Alkaline Phosphatase 138 U/L (38-126); Anion Gap 10 mmol/L (4-12); Aspartate Amino Transferase 30 U/L (17-59); Bilirubin,Total 0.4 mg/dL (0.2-1.3); Blood Urea Nitrogen 29 mg/dL (9-20); Calcium 9.1 mg/dL (8.4-10.2); Carbon Dioxide 25 mmol/L (22-30); Chloride 95 mmol/L (98-107); Estimated CRCL calculation 93 ml/min; Estimated Glomerular Filt Rate > 60; Glucose 367 mg/dL (65-110); INR 0.9; Lipase 165 U/L (23-300); Magnesium 1.8 mg/dL (1.6-2.3); Partial Thromboplastin Time 25.3 Seconds (22.3-36.8); Potassium 4.2 mmol/L (3.4-5.0); Prothrombin Time 12.4 Seconds (11.1-14.7); Sodium 130 mmol/L (137-145)
[2023-12-19 22:34] VITALS: BP 178/114; PULSE 93; RESP 20; TEMP 36.8; O2SAT 98
[2023-12-19 22:43] LABS: Add Urine Microscopic? YES; Appearance Urine Clear (Clear); Bacteria Urine None Seen /hpf; Bilirubin Urine Negative (Negative); Blood Urine 2+ (Negative); Color Urine Yellow (Yellow); Glucose Urine UA 3+ mg/dL (Negative); Ketones Urine Negative (Negative); Leukocyte Esterase Ur Negative LEU/UL (Negative); Nitrate Urine Negative (Negative); Non Pathogenic Casts 0-2; Protein Urine 4+ mg/dL (Negative); Specific Grav Ur 1.022 (1.001-1.035); Squamous Epithelial Cell Urine None Seen /hpf (Few); WBC Urine 0-5 /hpf (0-3); pH Urine 6.5 (5.0-9.0)
[2023-12-19 23:10] LABS: NT Pro B Type Natriuretic Pept 301 pg/mL (19.9-100)
--- NOTE | 2023-12-19 23:12 | ED.GENADULT ---
HPI - General Adult General Chief complaint: Recheck/Abnormal Lab/Rx Stated complaint: dr sent for abnormal labs, pt not sure what labs Time Seen by Provider: 12/19/23 21:37 History of Present Illness HPI narrative: Patient is a 48-year-old gentleman presents emergency department with chief complaint of weakness and fatigue for the last few months patient had blood work done and was told to come to the emergency department. The patient normally takes 20 mg of lisinopril but has not been taking it the patient also is supposed to be on munjaro but has not been taking it either Related Data Allergies Allergy/AdvReac Type Severity Reaction Status Date / Time No Known Allergies Allergy Verified 12/19/23 21:42 Review of Systems Review of Systems: A 10 system review of systems was completed on the patient and is negative except for what is stated in the HPI. Nursing and ancillary documentation was reviewed. 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 The patient desires to be a full code. The patient stated he quit smoking about 10 years ago. He smoked for short period of time occasionally uses alcohol but no marijuana or illicit drugs. 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 HEAD: Normocephalic, atraumatic. EYES: PERRLA and EOMI. ENT: Nares clear, no rhinorrhea or epistaxis. Mucous membranes moist. NECK: Supple. CHEST: Clear to auscultation. No respiratory distress. HEART: Regular rate and rhythm. No murmur heard. Normal peripheral pulses. ABDOMEN: Soft, nontender, nondistended, normal active bowel sounds. EXTREMITIES: Normal range of motion. No edema. SKIN: Warm, dry, no rash. NEURO: No focal deficits. Alert and oriented x3. PSYCH: Normal mood and affect. Course Vital Signs Vital signs: Vital Signs Temperature 36.4 C 12/19/23 20:18 Pulse Rate 103 H 12/19/23 20:18 Respiratory Rate 18 12/19/23 20:18 Blood Pressure 203/107 H 12/19/23 20:18 Pulse Oximetry 97 12/19/23 20:18 Temperature 36.8 C 12/19/23 22:34 Pulse Rate 93 12/19/23 22:34 Respiratory Rate 20 12/19/23 22:34 Blood Pressure 178/114 H 12/19/23 22:34 Pulse Oximetry 98 12/19/23 22:34 Medical Decision Making MDM Narrative Medical decision making narrative: Differential diagnosis includes hypertension, DKA, hyperglycemia, noncompliance, UTI Laboratory studies were obtained on the patie
[2023-12-19 23:40] LABS: Procalcitonin 0.1 ng/mL
[2023-12-19 23:57] LABS: Glucose Point of Care 329 mg/dl (65-105)
[2023-12-20 00:34] LABS: Glucose Point of Care 361 mg/dl (65-105)
== END 2023-12-20 00:15 | disposition home or self-care (01) ==
PROVIDERS: Emergency Provider Emergency Medicine; PCP Nurse Practitioner Adult Health
DX: E11.65 Type 2 diabetes mellitus with hyperglycemia (principal); I10 Essential (primary) hypertension; T46.4X6A Underdosing of angiotensin-converting-enzyme inhibitors, initial encounter; T50.996A Underdosing of other drugs, medicaments and biological substances, initial encounter; L40.9 Psoriasis, unspecified; Z87.891 Personal history of nicotine dependence; Z79.84 Long term (current) use of oral hypoglycemic drugs; Z79.899 Other long term (current) drug therapy; Z79.85 Long-term (current) use of injectable non-insulin antidiabetic drugs
CPT/HCPCS: 36415; 36600; 71045; 80053; 81001; 82010; 82805; 82948; 83605; 83690; 83735; 83880; 84145; 85025; 85610; 85730; 93005; 96360; 99283; J7030

== ENCOUNTER 2024-01-16 07:25 | Outpatient (CLI) | payer BC, SELFPAY ==
[2024-01-16 08:38] LABS: Hematocrit 32.9 % (42.0-52.0); Hemoglobin 11.2 g/dL (14.0-18.0); Mean Corpuscular Hemoglobin 28.5 pg (26-34); Mean Corpuscular Volume 83.7 fl (80-100); Mean Platelet Volume 11.6 fl (7.4-10.4); Platelet Count Result 201 k/mm3 (150-375); Red Blood Count 3.93 M/mm3 (4.6-6.20); Red Cell Distribution Width 13.3 % (11.5-14.5); White Blood Count 7.4 K/mm3 (4.5-10.0)
[2024-01-16 08:55] LABS: Alanine Aminotransferase 29 U/L (6-50); Albumin Level 3.8 g/dL (3.5-5.1); Alkaline Phosphatase 83 U/L (38-126); Anion Gap 9 mmol/L (4-12); Aspartate Amino Transferase 32 U/L (17-59); Bilirubin,Total 0.3 mg/dL (0.2-1.3); Blood Urea Nitrogen 26 mg/dL (9-20); Calcium 8.7 mg/dL (8.4-10.2); Carbon Dioxide 24 mmol/L (22-30); Chloride 105 mmol/L (98-107); Cholesterol 94 mg/dL (0-200); Estimated Glomerular Filt Rate 41; Glucose 166 mg/dL (65-110); HDL Direct 26 mg/dL; Potassium 3.7 mmol/L (3.4-5.0); Sodium 138 mmol/L (137-145); Triglycerides 297 mg/dL (<150)
[2024-01-16 09:01] LABS: Add Urine Microscopic? YES; Appearance Urine Clear (Clear); Bacteria Urine None Seen /hpf; Bilirubin Urine Negative (Negative); Blood Urine 2+ (Negative); Color Urine Yellow (Yellow); Glucose Urine UA 3+ mg/dL (Negative); Ketones Urine Negative (Negative); Leukocyte Esterase Ur Negative LEU/UL (Negative); Nitrate Urine Negative (Negative); Protein Urine 3+ mg/dL (Negative); Specific Grav Ur 1.025 (1.001-1.035); Squamous Epithelial Cell Urine Occasional /hpf (Few); WBC Urine 0-5 /hpf (0-3)
[2024-01-16 09:17] LABS: Prostate Specific Antigen 0.3 ng/mL (< OR = 4.0)
[2024-01-16 09:29] LABS: LDL Cholesterol Direct < 30 mg/dL
[2024-01-16 09:48] LABS: Hemoglobin A1C 10.3 % (<5.7)
[2024-01-16 10:08] LABS: Hepatitis B Surface Antigen Negative (Negative)
[2024-01-16 10:13] LABS: HAV RESULT Negative (Negative); Hepatitis B Core IgM Result Negative (Negative)
[2024-01-16 10:25] LABS: Hepatitis C Virus Antibody Negative (Negative)
[2024-01-16 10:26] LABS: Iron 74 ug/dL (49-181)
[2024-01-16 10:27] LABS: Creatinine Urine 73.7 mg/dL
[2024-01-16 10:37] LABS: Percent Iron Saturation 22 % (20-50)
[2024-01-16 10:46] LABS: Free T4 Free Thyroxine 1.26 ng/mL (0.78-2.19)
[2024-01-16 11:03] LABS: Vitamin D 25 Hydroxy < 12.8 ng/mL
[2024-01-16 12:21] LABS: MALB Creatinine Ratio > 1546.8 mg/g (0-30); Microalbumin Urine Random > 1140.0 mg/L (0-16.7)
[2024-01-20 17:08] LABS: Testosterone Free 53 pg/mL (35.0-155.0); Testosterone Total 189 ng/dL (250-1100)
== END 2024-01-16 07:26 | disposition home or self-care (01) ==
LOC: ANHLAB 07:27
PROVIDERS: PCP Nurse Practitioner Adult Health; Visit Provider Emergency Medicine
DX: Z00.00 Encounter for general adult medical examination without abnormal findings (principal); E11.9 Type 2 diabetes mellitus without complications; I10 Essential (primary) hypertension; E78.5 Hyperlipidemia, unspecified
CPT/HCPCS: 36415; 80053; 80061; 80074; 81001; 82043; 82306; 83036; 83540; 83550; 84153; 84402; 84403; 84439; 84443; 85027; 88108

== ENCOUNTER 2024-01-17 11:31 | Outpatient (CLI) | payer BC, SELFPAY ==
--- NOTE | ~2024-01-17 | XR_ITS ---
XR abdomen/kub 1V Ordering provider: Alex Dawkins MD History: . flank pain X 2 WEEKS . Comparison: June 18, 2011 FINDINGS: BOWEL: Nonobstructive bowel gas pattern. ORGANOMEGALY: None. SIGNIFICANT PATHOLOGIC CALCIFICATIONS: None. Calcifications in the paraspinal area is most likely o utside the kidney. OTHER: No free air is seen under the diaphragm. Radiopaque shadow is projected over the pelvis most likely artifacts. IMPRESSION: NO ACUTE ABDOMINAL FINDINGS. Reviewed, dictated and finalized at location A.
== END 2024-01-17 11:32 | disposition home or self-care (01) ==
LOC: ANHLAB 11:34
PROVIDERS: PCP Emergency Medicine; Visit Provider Emergency Medicine
DX: Z00.00 Encounter for general adult medical examination without abnormal findings (principal); D64.9 Anemia, unspecified; E11.9 Type 2 diabetes mellitus without complications; R31.9 Hematuria, unspecified; R10.9 Unspecified abdominal pain
CPT/HCPCS: 74018